=== PATIENT | male | born 1955 | race Caucasian/White ===

== ENCOUNTER 2017-01-22 12:29 | Inpatient (IN) | payer BC ==
[2017-01-22] MEDS ORDERED: SODIUM CHLORIDE 0.9% 1,000 ML IV STA (14:37)
[2017-01-22] MEDS ORDERED: IV VANCOMYCIN PER PHARMACY 1 EACH MISC MISCELLANE PRN (14:37)
[2017-01-22] MEDS ORDERED: LEVOFLOXACIN 750MG-D5W PMX 750 MG in DEXTROSE/WATER 1 150ML.BAG IVPB STA (14:37)
--- NOTE | 2017-01-22 14:40 | ED ---
General Adult HPI - General Chief complaint: Skin/Abscess/Foreign Body Stated complaint: Rash with Sores on Legs Time Seen by Provider: 01/22/17 13:44 Source: patient, RN notes reviewed Mode of arrival: ambulatory Limitations: no limitations - History of Present Illness Initial comments: Patient 61-year-old male who presents emergency room today with bilateral leg rash. Patient does admit that symptoms started over a month ago. He states he had an abscess to the upper thigh. He states he was in [place] time went to an urgent care had labs and started on antibiotics of Bactrim. States been on Bactrim in the past. Patient does admit that approximately a week after finishing his antibiotic he noticed a small rash to his legs bilaterally. He states he went to an urgent care was diagnosed with Henoch Schonen purpura. Patient states that rashes, worse. He states that they've turned into "boils". States she's had some drainage and weeping from the wounds. Patient does admit to burning sensation to the lower legs. Denies any other complaints. Patient denies any recent fever, chills, shortness of breath, chest pain, back pain, abdominal pain, nausea or vomiting, dysuria or hematuria, constipation or diarrhea, headaches or visual changes, or any other complaints. - Related Data Home Medications Medication Instructions Recorded Confirmed Aspirin 81 mg PO DAILY 01/22/17 01/22/17 Canagliflozin [Invokana] 300 mg PO DAILY 01/22/17 01/22/17 Cyanocobalamin (Vitamin B-12) 1,000 mcg PO DAILY 01/22/17 01/22/17 [Vitamin B-12] Insulin Glargine,Hum.rec.anlog 46 units SQ DAILY 01/22/17 01/22/17 [Toujamar Solostar] Liraglutide [Victoza 3-Lucio] 1.8 mg SQ DAILY 01/22/17 01/22/17 Lisinopril [Zestril] 5 mg PO DAILY 01/22/17 01/22/17 Pravastatin Sodium [Pravachol] 80 mg PO HS 01/22/17 01/22/17 metFORMIN HCL [Glucophage] 500 mg PO BID 01/22/17 01/22/17 Allergies Allergy/AdvReac Type Severity Reaction Status Date / Time cefprozil Allergy Unknown Verified 01/22/17 14:11 sulfamethoxazole Allergy Unknown Verified 01/22/17 14:11 [From Bactrim] trimethoprim [From Bactrim] Allergy Unknown Verified 01/22/17 14:11 Review of Systems ROS Statement: Those systems with pertinent positive or pertinent negative responses have been documented in the HPI. ROS Other: All systems not noted in ROS Statement are negative. 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 Eye: Pupils are equal, round and reactive to light, extra-ocular movements are intact. No nystagmus. There is normal conjunctiva bilaterally. No signs of icterus. Ears, nose, mouth and throat: There are moist mucous membranes and no oral lesions. Neck: The neck is supple, there is no tenderness or JVD. Cardiovascular: There is a regular rate and rhythm. No murmur, rub or gallop is appreciated. Respiratory: Lungs are clear to auscultation, respirations are non-labored, breath sounds are equal. No wheezes, stridor, rales, or rhonchi. Musculoskeletal: Normal ROM, no tenderness. Strength 5/5. Sensation intact. Pulses equal bilaterally 2+. Neurological: A&O x 3. CN II-XII intact, There are no obvious motor or sensory deficits. Coordination appears grossly intact. Speech is normal. Skin: He does have multiple ulcers to the lower extremities from the knees down bilaterally. There is local redness or erythema. There is some drainage and weeping from some of these wounds. Psychiatric: Cooperative, appropriate mood & affect, normal judgment. Limitations: no limitations Course Vital Signs 01/22/17 01/22/17 12:32 15:05 Temperature 98.1 F 98.1 F Pulse Rate 88 87 Respiratory 18 16 Rate Blood Pressure 149/70 157/68 O2 Sat by Pulse 98 98 Oximetry Medical Decision Making - Medical Decision Making Case discussed in detail with attending physician Dr. Barlow. Patient started on antibiotics here in the emergency room of both Levaquin and vancomycin. X- rays obtained to rule out any free air. Patient will be admitted continue on antibiotics. - Lab Data Result diagrams: 01/22/17 15:00 01/22/17 15:00 Lab Results 01/22/17 01/22/17 Range/Units 15:00 15:00 WBC 8.8 (3.8-10.6) k/uL RBC 4.50 (4.30-5.90) m/uL Hgb 13.5 (13.0-17.5) gm/dL Hct 41.3 (39.0-53.0) % MCV 91.8 (80.0-100.0) fL MCH 30.0 (25.0-35.0) pg MCHC 32.7 (31.0-37.0) g/dL RDW 12.3 (11.5-15.5) % Plt Count 263 (150-450) k/uL Neutrophils % 75 % Lymphocytes % 13 % Monocytes % 7 % Eosinophils % 3 % Basophils % 0 % Neutrophils # 6.6 (1.3-7.7) k/uL Lymphocytes # 1.2 (1.0-4.8) k/uL Monocytes # 0.6 (0-1.0) k/uL Eosinophils # 0.3 (0-0.7) k/uL Basophils # 0.0 (0-0.2) k/uL Sodium 141 (137-145) mmol/L Potassium 4.7 (3.5-5.1) mmol/L Chloride 106 (98-107) mmol/L Carbon Dioxide 27 (22-30) mmol/L Anion Gap 8 mmol/L BUN 23 H (9-20) mg/dL Creatinine 0.92 (0.66-1.25) mg/dL Est GFR (MDRD) Af Amer >60 (>60 ml/min/1.73 sqM) Est GFR (MDRD) Non-Af >60 (>60 ml/min/1.73 sqM) Glucose 81 (74-99) mg/dL Calcium 8.5 (8.4-10.2) mg/dL Total Bilirubin 0.4 (0.2-1.3) mg/dL AST 13 L (17-59) U/L ALT 28 (21-72) U/L Alkaline Phosphatase 66 (38-126) U/L Total Protein 5.7 L (6.3-8.2) g/dL Albumin 3.2 L (3.5-5.0) g/dL Disposition Clinical Impression: Cellulitis Disposition: ADMITTED IP TO THIS [facility] Condition: Stable Referrals: Nonstaff,Physician [Primary Care Provider] - 1-2 days Time of Disposition: 15:32
[2017-01-22] MEDS ORDERED: VANCOMYCIN 2,500 MG in SODIUM CHLORIDE 0.9% 500 ML IVPB ONE (15:00)
[2017-01-22] MEDS ORDERED: HYDROcodone/APAP 5-325MG 1 EACH TAB PO STA (15:07)
[2017-01-22 15:13] LABS: Basophils % (A) 0 %; CH 29.6; CHCM 32.4; Eosinophils # (A) 0.3 k/uL (0-0.7); Eosinophils % (A) 3 %; HCT 41.3 % (39.0-53.0); HDW 2.21; HGB 13.5 gm/dL (13.0-17.5); Luc # (Auto) 0.15; Luc % (Auto) 2; Lymphocytes # (A) 1.2 k/uL (1.0-4.8); Lymphocytes % (A) 13 %; MCHC 32.7 g/dL (31.0-37.0); MCV 91.8 fL (80.0-100.0); Mean Platelet Volume 7.8; Monocytes # (A) 0.6 k/uL (0-1.0); Monocytes % (A) 7 %; Neutrophils # (A) 6.6 k/uL (1.3-7.7); Neutrophils % (A) 75 %; RDW 12.3 % (11.5-15.5); WBC 8.8 k/uL (3.8-10.6); WBC (Perox) 8.82
[2017-01-22 15:22] LABS: ALT 28 U/L (21-72); AST 13 U/L (17-59); Alkaline Phosphatase 66 U/L (38-126); Anion Gap 8 mmol/L; Blood Urea Nitrogen 23 mg/dL (9-20); Calcium 8.5 mg/dL (8.4-10.2); Carbon Dioxide 27 mmol/L (22-30); Chloride 106 mmol/L (98-107); Glucose 81 mg/dL (74-99); Non-African American GFR(MDRD) >60 (>60 ml/min/1.73 sqM); Potassium 4.7 mmol/L (3.5-5.1); Sodium 141 mmol/L (137-145); Total Bilirubin 0.4 mg/dL (0.2-1.3); Total Protein 5.7 g/dL (6.3-8.2)
[2017-01-22] MEDS ORDERED: HYDROmorphone 1 MG/ML 1 ML SYRINGE IV PRN (15:53)
[2017-01-22] MEDS ORDERED: ACETAMINOPHEN TAB 325 MG TAB PO PRN (15:53)
[2017-01-22] MEDS ORDERED: LORazepam 2 MG/ML SYRINGE IV PRN (15:53)
[2017-01-22] MEDS ORDERED: NALOXONE 0.4 MG/ML 1 ML VIAL IV PRN (15:53)
[2017-01-22] MEDS ORDERED: ONDANSETRON 4 MG/2 ML VIAL IVP PRN (15:53)
--- NOTE | 2017-01-22 16:22 | XR ---
EXAMINATION TYPE: XR foot limited bilateral DATE OF EXAM: 01/22/2017 CLINICAL HISTORY: Bilateral leg and foot infection with pain. TECHNIQUE: Frontal and lateral images of the bilateral feet are obtained. COMPARISON: None FINDINGS: There is no acute fracture/dislocation evident in either foot. Small to moderate-sized sup erior and inferior calcaneal spurs are present bilaterally. There is moderate diffuse subcutaneous ed coleen and soft tissue swelling noted bilaterally. No suspicious cortical destruction or periosteal reac tion is clearly seen. Ossific fusion of fourth middle and distal phalanx bilaterally is incidentally noted. Joint space loss medial talar navicular articulation bilaterally is seen. IMPRESSION: There is soft tissue swelling and calcaneal spurring as well as degenerative changes in both feet as detailed above.
--- NOTE | 2017-01-22 16:27 | XR ---
EXAMINATION TYPE: XR tibia fibula bilateral DATE OF EXAM: 01/22/2017 CLINICAL HISTORY: Bilateral leg and foot infection with pain. TECHNIQUE: Two views of the bilateral legs are obtained. COMPARISON: None. FINDINGS: There is no acute fracture or dislocation seen in either tibia or fibula. There is joint s pace loss and spurring most pronounced medial tibiofemoral and patellofemoral compartments in the rig ht knee. Ankle joints are grossly within normal limits bilaterally. There is moderate to severe diffu se subcutaneous edema present bilaterally. No suspicious cortical destruction or periosteal reaction is seen. IMPRESSION: As above
[2017-01-22 20:59] LABS: Glucose,Whole Blood 102 mg/dL (75-99)
[2017-01-22] MEDS: PRAVASTATIN SODIUM 80 MG TAB PO SCH (22:52)
[2017-01-22] MEDS: metFORMIN 500 MG TAB PO SCH (22:52)
[2017-01-23] MEDS: VANCOMYCIN 2,000 MG in SODIUM CHLORIDE 0.9% 500 ML IVPB SCH ×2 (05:19→18:24)
[2017-01-23 07:01] LABS: Glucose,Whole Blood 83 mg/dL (75-99)
[2017-01-23] MEDS: INSULIN LISPRO (humaLOG) 300 UNIT/3 ML VIAL SQ SCH ×4 (08:29→21:28)
[2017-01-23] MEDS: INSULIN GLARGINE 100 UNIT/ML 10 ML VIAL SQ SCH (09:03)
[2017-01-23] MEDS: metFORMIN 500 MG TAB PO SCH ×2 (09:04→20:40)
[2017-01-23] MEDS: ASPIRIN 81 MG CHEW PO SCH (09:04)
[2017-01-23] MEDS: LISINOPRIL 5 MG TAB PO SCH (09:04)
[2017-01-23 09:15] LABS: Basophils % (A) 0 %; CH 29.8; CHCM 31.7; Eosinophils # (A) 0.2 k/uL (0-0.7); Eosinophils % (A) 2 %; HCT 38.2 % (39.0-53.0); HDW 2.14; HGB 12.1 gm/dL (13.0-17.5); Luc # (Auto) 0.15; Luc % (Auto) 2; Lymphocytes % (A) 12 %; MCH 29.9 pg (25.0-35.0); MCHC 31.6 g/dL (31.0-37.0); MCV 94.5 fL (80.0-100.0); Mean Platelet Volume 7.7; Monocytes # (A) 0.5 k/uL (0-1.0); Monocytes % (A) 7 %; Neutrophils # (A) 6.5 k/uL (1.3-7.7); Neutrophils % (A) 78 %; RBC 4.04 m/uL (4.30-5.90); WBC 8.3 k/uL (3.8-10.6); WBC (Perox) 8.28
[2017-01-23 09:33] LABS: ALT 28 U/L (21-72); AST 11 U/L (17-59); Alkaline Phosphatase 58 U/L (38-126); Anion Gap 7 mmol/L; Blood Urea Nitrogen 18 mg/dL (9-20); Calcium 8.1 mg/dL (8.4-10.2); Carbon Dioxide 22 mmol/L (22-30); Chloride 109 mmol/L (98-107); Glucose 122 mg/dL (74-99); Non-African American GFR(MDRD) >60 (>60 ml/min/1.73 sqM); Potassium 4.5 mmol/L (3.5-5.1); Sodium 138 mmol/L (137-145); Total Bilirubin 0.5 mg/dL (0.2-1.3); Total Protein 4.9 g/dL (6.3-8.2)
[2017-01-23 11:40] LABS: Glucose,Whole Blood 80 mg/dL (75-99)
[2017-01-23] MEDS: CYANOCOBALAMIN 500 MCG TAB PO SCH (12:37)
[2017-01-23 13:52] LABS: Hemoglobin A1C 6.1 % (4.2-6.1)
[2017-01-23 17:30] LABS: Glucose,Whole Blood 87 mg/dL (75-99)
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
[2017-01-23] MEDS: ENOXAPARIN 60 MG/0.6 ML SYRINGE SQ SCH (18:27)
--- NOTE | 2017-01-23 19:42 | US ---
EXAMINATION TYPE: US venous doppler duplex LE BI DATE OF EXAM: 01/23/2017 7:36 PM COMPARISON: NONE CLINICAL HISTORY: Swelling, cellulitis . SIDE PERFORMED: Bilateral TECHNIQUE: The lower extremity deep venous system is examined utilizing real time linear array sonog madison with graded compression, doppler sonography and color-flow sonography. VESSELS IMAGED: External Iliac Vein (EIV) Common Femoral Vein Deep Femoral Vein Greater Saphenous Vein * Femoral Vein Popliteal Vein Small Saphenous Vein * Proximal Calf Veins (* superficial vessels) Right Leg: Negative for DVT Left Leg: Negative for DVT IMPRESSION: Negative exam. No evidence of deep venous thrombosis in both legs.
[2017-01-23] MEDS: HYDROcodone/APAP 5-325MG 1 EACH TAB PO PRN (20:40)
[2017-01-23] MEDS: PRAVASTATIN SODIUM 80 MG TAB PO SCH (20:40)
[2017-01-23 21:40] LABS: Glucose,Whole Blood 94 mg/dL (75-99)
[2017-01-24 07:28] LABS: Glucose,Whole Blood 88 mg/dL (75-99)
[2017-01-24] MEDS: INSULIN LISPRO (humaLOG) 300 UNIT/3 ML VIAL SQ SCH ×4 (07:56→22:00)
[2017-01-24] MEDS: LISINOPRIL 5 MG TAB PO SCH (07:57)
[2017-01-24] MEDS: INSULIN GLARGINE 100 UNIT/ML 10 ML VIAL SQ SCH (07:57)
[2017-01-24] MEDS: VANCOMYCIN 2,000 MG in SODIUM CHLORIDE 0.9% 500 ML IVPB SCH ×2 (07:57→17:39)
[2017-01-24] MEDS: metFORMIN 500 MG TAB PO SCH ×2 (07:57→22:00)
[2017-01-24] MEDS: ASPIRIN 81 MG CHEW PO SCH (07:57)
[2017-01-24] MEDS: ENOXAPARIN 60 MG/0.6 ML SYRINGE SQ SCH (07:57)
[2017-01-24 08:52] LABS: Basophils % (A) 0 %; CH 29.2; CHCM 31.7; Eosinophils # (A) 0.2 k/uL (0-0.7); Eosinophils % (A) 3 %; HCT 38.7 % (39.0-53.0); HDW 2.25; HGB 12.6 gm/dL (13.0-17.5); Luc # (Auto) 0.14; Luc % (Auto) 2; Lymphocytes # (A) 1.2 k/uL (1.0-4.8); Lymphocytes % (A) 16 %; MCH 30.3 pg (25.0-35.0); MCHC 32.7 g/dL (31.0-37.0); MCV 92.6 fL (80.0-100.0); Mean Platelet Volume 7.2; Monocytes # (A) 0.5 k/uL (0-1.0); Monocytes % (A) 7 %; Neutrophils # (A) 5.3 k/uL (1.3-7.7); Neutrophils % (A) 72 %; RBC 4.18 m/uL (4.30-5.90); RDW 12.2 % (11.5-15.5); WBC 7.3 k/uL (3.8-10.6); WBC (Perox) 7.97
[2017-01-24 09:30] LABS: ALT 20 U/L (21-72); AST 11 U/L (17-59); Alkaline Phosphatase 55 U/L (38-126); Anion Gap 8 mmol/L; Blood Urea Nitrogen 19 mg/dL (9-20); Calcium 8.3 mg/dL (8.4-10.2); Carbon Dioxide 26 mmol/L (22-30); Chloride 107 mmol/L (98-107); Glucose 107 mg/dL (74-99); Non-African American GFR(MDRD) >60 (>60 ml/min/1.73 sqM); Potassium 4.9 mmol/L (3.5-5.1); Sodium 141 mmol/L (137-145); Total Bilirubin 0.3 mg/dL (0.2-1.3); Total Protein 5.2 g/dL (6.3-8.2)
[2017-01-24] MEDS: NON-FORMULARY DRUG (Liraglutide [Victoza 3-Pak] 1.8 MG) SQ SCH ×2 (10:22→10:23)
[2017-01-24] MEDS: NON-FORMULARY DRUG (Canagliflozin [Invokana] 300 MG) PO SCH (10:22)
[2017-01-24 11:53] LABS: Glucose,Whole Blood 80 mg/dL (75-99)
[2017-01-24] MEDS: CYANOCOBALAMIN 500 MCG TAB PO SCH (11:53)
[2017-01-24 17:48] LABS: Glucose,Whole Blood 61 mg/dL (75-99)
[2017-01-24 17:48] LABS: Glucose,Whole Blood 76 mg/dL (75-99)
--- NOTE | 2017-01-24 20:12 | P.PN ---
Subjective 61 yr old gentlemen, with history of DM2, obesity who lives in [place], and has been travelling all over the country comes into the hospital with worsening of bilateral lower extremities. pt apparently had a abscess in november, around his groin received a course of bactrim for 10 days. Thereafter was noted to have severe purpura over his extremities. Pt was told it is likely a drug reaction. Pt was given symptomatic treatment and discharged home Pt also had associated diarrhea at that time Pt thereafter noted progressive worsening of swelling in his lower ext. in the recent times, noted to have significant oozing with scabs. Pt tried using peroxide solution, without much relief Denies having fevers, chills, nausea, vomiting, diarrhea, chest pain, REZA. 01/23/17 states to be doing slightly better no fevers, chills, nausea, vomiting, diarrhea - Constitutional General appearance: no acute distress, obese - EENT Eyes: PERRLA - Neck Neck: normal ROM - Respiratory Respiratory: bilateral: CTA, negative: dullness, rales, rhonchi - Cardiovascular Rhythm: regular Heart sounds: normal: S1, S2 - Gastrointestinal General gastrointestinal: normal bowel sounds, no organomegaly, soft - Integumentary Integumentary: cellulitis (b/l below the knee, with multiple areas of scabs tender to palpation, swelling noted.) - Neurologic Neurologic: CNII-XII intact Objective - Vital Signs Vital signs: Vital Signs Temp 98.7 F 01/24/17 14:56 Pulse 86 01/24/17 14:56 Resp 19 01/24/17 14:56 BP 131/70 01/24/17 14:56 Pulse Ox 97 01/24/17 14:56 Intake & Output 01/24/17 01/24/17 01/25/17 06:59 18:59 06:59 Intake Total 400 Balance 400 Intake: Oral 400 Other: Voiding Method Toilet # Voids 2 3 - Labs CBC & Chem 7: 01/24/17 08:06 01/24/17 08:06 Labs: Abnormal Lab Results - Last 24 Hours (Table) 01/24/17 01/24/17 01/24/17 Range/Units 08:06 08:06 17:29 RBC 4.18 L (4.30-5.90) m/uL Hgb 12.6 L (13.0-17.5) gm/dL Hct 38.7 L (39.0-53.0) % Glucose 107 H (74-99) mg/dL POC Glucose (mg/dL) 61 L (75-99) mg/dL Calcium 8.3 L (8.4-10.2) mg/dL AST 11 L (17-59) U/L ALT 20 L (21-72) U/L Total Protein 5.2 L (6.3-8.2) g/dL Albumin 2.8 L (3.5-5.0) g/dL Microbiology - Last 24 Hours (Table) 01/22/17 15:00 Blood Culture - Preliminary Blood No Growth after 48 hours 01/22/17 15:00 Gram Stain - Final Leg - Right Wound Culture - Final Methicillin resist S. aureus Assessment and Plan Plan: 1. Bilateral lower ext. cellulitis 2. Drug induced rash 3. DM2 4. Obesity 5. Dyslipidemia Plan IV vancomycin wound care glucose levels appropriate restart home meds DVT prophylaxis.
[2017-01-24] MEDS: PRAVASTATIN SODIUM 80 MG TAB PO SCH (22:00)
[2017-01-24 22:16] LABS: Glucose,Whole Blood 100 mg/dL (75-99)
[2017-01-25] MEDS ORDERED: VANCOMYCIN TROUGH DUE 1 EACH MISC MISCELLANE ONE (05:00)
[2017-01-25 06:18] LABS: Anion Gap 7 mmol/L; Blood Urea Nitrogen 22 mg/dL (9-20); Carbon Dioxide 24 mmol/L (22-30); Chloride 109 mmol/L (98-107); Glucose 82 mg/dL (74-99); Non-African American GFR(MDRD) >60 (>60 ml/min/1.73 sqM); Potassium 4.4 mmol/L (3.5-5.1); Sodium 140 mmol/L (137-145)
[2017-01-25] MEDS: VANCOMYCIN 2,000 MG in SODIUM CHLORIDE 0.9% 500 ML IVPB SCH (06:49)
[2017-01-25 07:34] LABS: Glucose,Whole Blood 88 mg/dL (75-99)
[2017-01-25] MEDS: ENOXAPARIN 60 MG/0.6 ML SYRINGE SQ SCH (07:54)
[2017-01-25] MEDS: ASPIRIN 81 MG CHEW PO SCH (07:54)
[2017-01-25] MEDS: INSULIN GLARGINE 100 UNIT/ML 10 ML VIAL SQ SCH (07:54)
[2017-01-25] MEDS: INSULIN LISPRO (humaLOG) 300 UNIT/3 ML VIAL SQ SCH ×4 (07:54→21:38)
[2017-01-25] MEDS: LISINOPRIL 5 MG TAB PO SCH (07:55)
[2017-01-25] MEDS: metFORMIN 500 MG TAB PO SCH ×2 (07:55→21:35)
[2017-01-25 12:23] LABS: Glucose,Whole Blood 77 mg/dL (75-99)
[2017-01-25] MEDS: CYANOCOBALAMIN 500 MCG TAB PO SCH (12:25)
--- NOTE | 2017-01-25 12:50 | CONS ---
DATE OF CONSULTATION: 01/24/2017 Reason for consultation is bilateral lower extremity wound and cellulitis. HISTORY OF PRESENT ILLNESS: The patient is a 61-year-old male presenting to the ER with the chief complaints of worsening lower extremity rash and wound. Apparently the patient is a resident of [place] has been traveling around and in November he did notice to have a groin infection that was lanced and culture was positive for MRSA. Patient was treated with a tiny course of oral Bactrim. Patient did okay and finished his antibiotic therapy; however, in his left groin the patient did develop blotches in his lower extremity and swelling of the arm. The patient said he was having petechiae. He went to a hospital in [place] where the patient was diagnosed with HSP and recommending systemic treatment. The patient also noticed to have elevated creatinine with the patient was advised to have a repeat blood work done to keep an eye on his kidney function. [facility] to have a blood draw to have his kidney function checked , on looking at his legs, the patient was sent to the [facility] ER for further evaluation. Patient has been evaluated by the ER physician. The patient did have venous Doppler that was negative for DVT. His creatinine has been normal and his white count was normal. Patient did have a culture obtained from one of his wounds, has been treated with vancomycin and ID was consulted for further recommendation regarding antibiotic therapy. Patient has been complaining of some dull aching pain in his leg wound, though overall surrounding redness has improved. Drainage is minimal. Appears to be ( ) in intensity, about 3 to 4 in pain and radiation. REVIEW OF SYSTEMS: CONSTITUTIONAL: Positive for weakness, but no fever. EYES: No complaint. ENT: No complaint. RESPIRATORY: No complaint. CARDIOVASCULAR: No complaint. GENITOURINARY: No complaint. GASTROINTESTINAL: No complaint. MUSCULOSKELETAL: No complaint. INTEGUMENTARY: As per HPI. PSYCHOLOGICAL: No complaint. ENDOCRINE: No complaint. NEUROLOGICAL: No complaint. His past medical history is significant for diabetes mellitus, groin MRSA, HSP. PAST SURGICAL HISTORY: Tonsillectomy, eye surgery for strabismus, skin cancer removal. SOCIAL HISTORY: Former smoker, occasionally drinks, no drug use. FAMILY HISTORY: Father with diabetes and of cancer, mother with history of diabetes and pancreatic cancer. Allergies to CEFPROZIL, SULFAMETHOXAZOLE. Medications currently include, patient currently on vancomycin. He is on Pravachol, Zosyn, Narcan, Glucophage, lorazepam, Humalog, Lantus, Dilaudid, aspirin, [place] and Tylenol. On examination, blood pressure is 151/70 with a pulse of 86, temperature 98.7. He is 97% on room air. General description is a middle-aged male lying in bed in no distress. No tachypnea or accessory muscle for respiration use. HEENT examination shows some pallor, no scleral icterus. Oral mucosa dry. Neck , tracheal central, no thyromegaly. LUNGS: Unlabored breathing, clear to auscultation anteriorly, no wheeze or crackle. HEART: S1, S2, regular rate and rhythm. ABDOMEN: Soft, no tenderness, no guarding or rigidity. EXTREMITIES: Rash leg, ( ) petechiae, bruises and some superficial laceration with minimal ( ) drainage, very minimal surrounding erythema. Neurologically, patient is awake, alert, oriented x3. Mood and affect normal. LABS: Hemoglobin is 12.6, white count of 7.3 with a BUN of 19, creatinine 0.89. The culture obtained from the wound is showing MRSA, blood cultures have been negative. DIAGNOSTIC IMPRESSION AND PLAN: Patient with a bilateral lower extremity wounds , as evidence of a ruptured blister and petechiae and possibly related to use of Bactrim that he used for his groin infection, now mostly with superficial laceration and a very minimal component of cellulitis with the culture showing a possible methicillin-resistant Staphylococcus aureus, blood culture negative. PLAN: 1. Recommend local wound care with the Aquacel silver dressing which the patient currently needs mostly as a component of cellulitis minimal. 2. The patient will continue with vancomycin, pharmacy to dose; however, will wait for sensitivities on this MRSA and if it is sensitive to tetracycline, that may be the choice of drug for outpatient use as the patient not a good candidate for IV antibiotic therapy as he continues to be traveling around the country. 3. We will follow up on his clinical condition to further adjust medications of needed. Thank you for this consultation, will follow this patient along with you. MARILU
--- NOTE | 2017-01-25 16:50 | P.PN ---
Subjective 61-year-old gentleman was admitted facilities of the right lower extremity and patient has diffuse rash leading to ulcerations in bilateral lower limbs most significant on the right leg, patient has multiple ulcerations please refer to nursing chart for further details. Patient has MRSA, awaiting cultures and studies patient is presently on vancomycin. Denies having fevers, chills, nausea, vomiting, diarrhea, chest pain, REZA. Objective - Vital Signs Vital signs: Vital Signs Temp 97.8 F 01/25/17 14:57 Pulse 74 01/25/17 14:57 Resp 16 01/25/17 14:57 BP 141/75 01/25/17 14:57 Pulse Ox 98 01/25/17 14:57 Intake & Output 01/24/17 01/25/17 01/25/17 18:59 06:59 18:59 Intake Total 500 320 Balance 500 320 Intake: Oral 500 320 Other: Voiding Method Toilet Toilet # Voids 3 1 - Exam - Constitutional General appearance: no acute distress, obese - EENT Eyes: PERRLA - Neck Neck: normal ROM - Respiratory Respiratory: bilateral: CTA, negative: dullness, rales, rhonchi - Cardiovascular Rhythm: regular Heart sounds: normal: S1, S2 - Gastrointestinal General gastrointestinal: normal bowel sounds, no organomegaly, soft - Integumentary Integumentary: cellulitis (b/l below the knee, with multiple areas of scabs tender to palpation, swelling noted.) - Labs CBC & Chem 7: 01/24/17 08:06 01/25/17 05:22 Labs: Abnormal Lab Results - Last 24 Hours (Table) 01/24/17 01/24/17 01/25/17 Range/Units 17:29 21:39 05:22 Chloride 109 H (98-107) mmol/L BUN 22 H (9-20) mg/dL POC Glucose (mg/dL) 61 L 100 H (75-99) mg/dL Calcium 8.0 L (8.4-10.2) mg/dL Microbiology - Last 24 Hours (Table) 01/22/17 15:00 Blood Culture - Preliminary Blood No Growth after 48 hours Assessment and Plan Plan: 1. Bilateral lower ext. cellulitis 2. Drug induced rash, followed by ulcerations multiple on the right leg. 3. DM2 4. Obesity 5. Dyslipidemia Plan IV vancomycin wound care glucose levels appropriate Continue home meds Awaiting finalization of the wound cultures. DVT prophylaxis. Counseled, cleared all the concerns of patient's and family members
[2017-01-25] MEDS: VANCOMYCIN 1,750 MG in SODIUM CHLORIDE 0.9% 250 ML IVPB SCH (17:02)
[2017-01-25 17:25] LABS: Glucose,Whole Blood 62 mg/dL (75-99)
[2017-01-25 17:35] LABS: Glucose,Whole Blood 94 mg/dL (75-99)
--- NOTE | 2017-01-25 20:42 | PN ---
DATE OF SERVICE: 01/25/17 REASON FOR FOLLOW UP: Bilateral lower extremity wound and cellulitis. INTERVAL HISTORY: The patient is afebrile. He is breathing comfortably. Denies significant chest pain or cough. No abdominal pain. Denies significant pain in his leg wound. Though overall drainage has decreased. On examination, blood pressure 141/75, pulse 74, temperature 97.8, he is 98% on room air. General description is a middle age male lying in the bed in no distress. Respiratory system: Unlabored breathing. Clear to auscultation anteriorly. Heart: S1, S2 regular rate and rhythm. Abdomen soft, no tenderness. Bilateral legs with some superficial wound from a ruptured blister though surrounding redness has improved. There is no significant slough tissue or any foul smelling drainage. LABS: BUN 22 with a creatinine of 1.0. Wound culture with MRSA that was resistant to tetracycline. 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 Unfortunately the only eruption will be ( ) 200 daily for six days. Local wound care will be with Aquacel silver. The patient and has been educated if they notice any worsening swelling, redness or any fever to call us or go to the nearest hospital as the patient is currently travelling the whole country. Plan of care discussed in detail with the attending physician as well. MARILU
[2017-01-25 21:10] LABS: Glucose,Whole Blood 148 mg/dL (75-99)
[2017-01-25] MEDS: PRAVASTATIN SODIUM 80 MG TAB PO SCH (21:35)
[2017-01-26] MEDS: VANCOMYCIN 1,750 MG in SODIUM CHLORIDE 0.9% 250 ML IVPB SCH ×2 (05:57→17:42)
[2017-01-26] MEDS: ENOXAPARIN 60 MG/0.6 ML SYRINGE SQ SCH (07:20)
[2017-01-26] MEDS: LISINOPRIL 5 MG TAB PO SCH (07:20)
[2017-01-26] MEDS: ASPIRIN 81 MG CHEW PO SCH (07:20)
[2017-01-26] MEDS: metFORMIN 500 MG TAB PO SCH ×2 (07:20→20:30)
[2017-01-26] MEDS: INSULIN GLARGINE 100 UNIT/ML 10 ML VIAL SQ SCH (07:25)
[2017-01-26] MEDS: INSULIN LISPRO (humaLOG) 300 UNIT/3 ML VIAL SQ SCH ×4 (07:29→21:44)
[2017-01-26 07:33] LABS: Glucose,Whole Blood 84 mg/dL (75-99)
[2017-01-26 09:17] LABS: Anion Gap 5 mmol/L; Blood Urea Nitrogen 18 mg/dL (9-20); Calcium 8.1 mg/dL (8.4-10.2); Carbon Dioxide 25 mmol/L (22-30); Chloride 110 mmol/L (98-107); Glucose 113 mg/dL (74-99); Non-African American GFR(MDRD) >60 (>60 ml/min/1.73 sqM); Potassium 4.7 mmol/L (3.5-5.1); Sodium 140 mmol/L (137-145)
[2017-01-26] MEDS: CYANOCOBALAMIN 500 MCG TAB PO SCH (11:35)
[2017-01-26 11:57] LABS: Glucose,Whole Blood 103 mg/dL (75-99)
--- NOTE | 2017-01-26 15:04 | P.PN ---
Subjective 61-year-old gentleman was admitted facilities of the right lower extremity and patient has diffuse rash leading to ulcerations in bilateral lower limbs most significant on the right leg, patient has multiple ulcerations please refer to nursing chart for further details. Patient has MRSA, infectious disease is recommending Tedizolid, which will lead prior authorization, insurance company is not available until Saturday. Because of which is unable to discharge the patient today. Denies having fevers, chills, nausea, vomiting, diarrhea, chest pain, REZA. Objective - Vital Signs Vital signs: Vital Signs Temp 97.2 F L 01/26/17 07:00 Pulse 69 01/26/17 07:00 Resp 20 01/26/17 07:00 BP 148/82 01/26/17 07:00 Pulse Ox 98 01/26/17 07:00 Intake & Output 01/25/17 01/26/17 01/26/17 18:59 06:59 18:59 Intake Total 320 640 Balance 320 640 Intake: Oral 320 640 Other: Voiding Method Toilet Toilet Toilet # Voids 1 1 - Exam - Constitutional General appearance: no acute distress, obese - EENT Eyes: PERRLA - Neck Neck: normal ROM - Respiratory Respiratory: bilateral: CTA, negative: dullness, rales, rhonchi - Cardiovascular Rhythm: regular Heart sounds: normal: S1, S2 - Gastrointestinal General gastrointestinal: normal bowel sounds, no organomegaly, soft - Integumentary Integumentary: cellulitis (b/l below the knee, with multiple areas of scabs tender to palpation, swelling noted.) - Labs CBC & Chem 7: 01/24/17 08:06 01/26/17 08:06 Labs: Abnormal Lab Results - Last 24 Hours (Table) 01/25/17 01/25/17 01/26/17 Range/Units 17:03 21:08 08:06 Chloride 110 H (98-107) mmol/L Glucose 113 H (74-99) mg/dL POC Glucose (mg/dL) 62 L 148 H (75-99) mg/dL Calcium 8.1 L (8.4-10.2) mg/dL 01/26/17 Range/Units 11:53 Chloride (98-107) mmol/L Glucose (74-99) mg/dL POC Glucose (mg/dL) 103 H (75-99) mg/dL Calcium (8.4-10.2) mg/dL Microbiology - Last 24 Hours (Table) 01/22/17 15:00 Blood Culture - Preliminary Blood No Growth after 72 hours Assessment and Plan Plan: 1. Bilateral lower ext. cellulitis 2. Drug induced rash, followed by ulcerations multiple on the right leg. 3. DM2 4. Obesity 5. Dyslipidemia Plan IV vancomycin wound care glucose levels bit low because of which decreasing the dose of Lantus to 38 units Continue home meds Awaiting finalization of the wound cultures. DVT prophylaxis.
[2017-01-26 17:18] LABS: Glucose,Whole Blood 92 mg/dL (75-99)
[2017-01-26] MEDS: PRAVASTATIN SODIUM 80 MG TAB PO SCH (20:30)
[2017-01-26 21:36] LABS: Glucose,Whole Blood 140 mg/dL (75-99)
[2017-01-27] MEDS: VANCOMYCIN 1,750 MG in SODIUM CHLORIDE 0.9% 250 ML IVPB SCH ×2 (05:06→17:43)
[2017-01-27] MEDS: INSULIN LISPRO (humaLOG) 300 UNIT/3 ML VIAL SQ SCH ×4 (07:34→21:25)
[2017-01-27 07:35] LABS: Glucose,Whole Blood 97 mg/dL (75-99)
[2017-01-27 09:04] LABS: Anion Gap 5 mmol/L; Blood Urea Nitrogen 17 mg/dL (9-20); Carbon Dioxide 25 mmol/L (22-30); Chloride 111 mmol/L (98-107); Glucose 134 mg/dL (74-99); Non-African American GFR(MDRD) >60 (>60 ml/min/1.73 sqM); Potassium 4.5 mmol/L (3.5-5.1); Sodium 141 mmol/L (137-145)
[2017-01-27] MEDS: ENOXAPARIN 60 MG/0.6 ML SYRINGE SQ SCH (09:51)
[2017-01-27] MEDS: LISINOPRIL 5 MG TAB PO SCH (09:51)
[2017-01-27] MEDS: ASPIRIN 81 MG CHEW PO SCH (09:51)
[2017-01-27] MEDS: metFORMIN 500 MG TAB PO SCH ×2 (09:51→20:27)
[2017-01-27] MEDS: INSULIN GLARGINE 100 UNIT/ML 10 ML VIAL SQ SCH (09:59)
[2017-01-27 12:07] LABS: Glucose,Whole Blood 115 mg/dL (75-99)
--- NOTE | 2017-01-27 15:09 | P.PN ---
Subjective 61-year-old gentleman was admitted facilities of the right lower extremity and patient has diffuse rash leading to ulcerations in bilateral lower limbs most significant on the right leg, patient has multiple ulcerations please refer to nursing chart for further details. Patient has MRSA, infectious disease is recommending Tedizolid, which will lead prior authorization, insurance company is not available until Saturday. Because of which is unable to discharge the patient today. 02/27/2017 Patient does not have any overnight events patient is presently on vancomycin plan is to discharge him on daptomycin for 3 days tomorrow. After PICC line placement Denies having fevers, chills, nausea, vomiting, diarrhea, chest pain, REZA. Objective - Vital Signs Vital signs: Vital Signs Temp 96.8 F L 01/27/17 07:00 Pulse 71 01/27/17 07:00 Resp 20 01/27/17 07:00 BP 132/70 01/27/17 07:00 Pulse Ox 98 01/27/17 07:00 Intake & Output 01/26/17 01/27/17 01/27/17 18:59 06:59 18:59 Intake Total 640 Output Total 2 Balance 640 -2 Intake: Oral 640 Output: Urine 2 Other: Voiding Method Toilet # Voids 3 2 - Exam - Constitutional General appearance: no acute distress, obese - EENT Eyes: PERRLA - Neck Neck: normal ROM - Respiratory Respiratory: bilateral: CTA, negative: dullness, rales, rhonchi - Cardiovascular Rhythm: regular Heart sounds: normal: S1, S2 - Gastrointestinal General gastrointestinal: normal bowel sounds, no organomegaly, soft - Integumentary Integumentary: cellulitis (b/l below the knee, with multiple areas of scabs tender to palpation, swelling noted.) - Labs CBC & Chem 7: 01/24/17 08:06 01/27/17 08:40 Labs: Abnormal Lab Results - Last 24 Hours (Table) 01/26/17 01/27/17 01/27/17 Range/Units 21:30 08:40 12:01 Chloride 111 H (98-107) mmol/L Glucose 134 H (74-99) mg/dL POC Glucose (mg/dL) 140 H 115 H (75-99) mg/dL Calcium 8.0 L (8.4-10.2) mg/dL Microbiology - Last 24 Hours (Table) 01/22/17 15:00 Blood Culture - Preliminary Blood No Growth after 96 hours Assessment and Plan Plan: 1. Bilateral lower ext. cellulitis 2. Drug induced rash, followed by ulcerations multiple on the right leg. 3. DM2 4. Obesity 5. Dyslipidemia Plan IV vancomycin wound care glucose levels bit low because of which decreasing the dose of Lantus to 38 units Continue home meds Possible discharge and daptomycin for 3 more days tomorrow. DVT prophylaxis.
--- NOTE | 2017-01-27 15:59 | PN ---
DATE OF SERVICE: 01/26/2017 REASON FOR FOLLOW UP: Bilateral lower extremity cellulitis. INTERVAL HISTORY: The patient is afebrile. He is feeling better. Pain to the legs has improved. Drainage has decreased. Denies significant chest pain. No shortness of breath, no cough. No abdominal pain, no diarrhea. On examination blood pressure is 153/82 with a pulse of 70, temperature 97.7, he is 100% on room air. GENERAL DESCRIPTION: Middle-aged male lying in bed in no distress. RESPIRATORY: Unlabored breathing. Clear to auscultation anteriorly. HEART: S1/S2 regular. ABDOMEN: Soft. No tenderness. Bilateral legs are currently dressed up. No significant drainage on the dressing. LABS: BUN 18 with a creatinine 0.80. DIAGNOSTIC IMPRESSION: 1. Patient with bilateral lower extremity wound from ( ) related to Bactrim. Local wound care to continue with Aquacel silver, IV antibiotic in the form of vanco, transitioning it to ( ) on discharge. Continue supportive care. MTDD
[2017-01-27] MEDS: CYANOCOBALAMIN 500 MCG TAB PO SCH (16:20)
[2017-01-27 17:27] LABS: Glucose,Whole Blood 79 mg/dL (75-99)
[2017-01-27] MEDS: PRAVASTATIN SODIUM 80 MG TAB PO SCH (20:27)
[2017-01-27 20:36] LABS: Glucose,Whole Blood 119 mg/dL (75-99)
[2017-01-28] MEDS: VANCOMYCIN 1,750 MG in SODIUM CHLORIDE 0.9% 250 ML IVPB SCH ×2 (06:02→16:54)
[2017-01-28] MEDS: ENOXAPARIN 60 MG/0.6 ML SYRINGE SQ SCH (07:47)
[2017-01-28] MEDS: ASPIRIN 81 MG CHEW PO SCH (07:47)
[2017-01-28] MEDS: LISINOPRIL 5 MG TAB PO SCH (07:47)
[2017-01-28] MEDS: metFORMIN 500 MG TAB PO SCH (07:47)
[2017-01-28] MEDS: INSULIN GLARGINE 100 UNIT/ML 10 ML VIAL SQ SCH (07:47)
[2017-01-28] MEDS: INSULIN LISPRO (humaLOG) 300 UNIT/3 ML VIAL SQ SCH ×3 (07:47→17:22)
[2017-01-28 07:52] VITALS: RESP 16
[2017-01-28 07:53] LABS: Glucose,Whole Blood 82 mg/dL (75-99)
[2017-01-28 09:24] LABS: Anion Gap 8 mmol/L; Blood Urea Nitrogen 18 mg/dL (9-20); Calcium 8.2 mg/dL (8.4-10.2); Carbon Dioxide 23 mmol/L (22-30); Chloride 110 mmol/L (98-107); Glucose 103 mg/dL (74-99); Non-African American GFR(MDRD) >60 (>60 ml/min/1.73 sqM); Potassium 4.3 mmol/L (3.5-5.1); Sodium 141 mmol/L (137-145)
[2017-01-28] MEDS: CYANOCOBALAMIN 500 MCG TAB PO SCH (11:00)
[2017-01-28] MEDS: HYDROcodone/APAP 5-325MG 1 EACH TAB PO PRN (11:50)
[2017-01-28 12:15] LABS: Glucose,Whole Blood 84 mg/dL (75-99)
--- NOTE | 2017-01-28 14:54 | P.DS ---
Providers Date of admission: 01/22/17 16:20 Attending physician: Aldo Conti MD Consults: 01/23/17 14:29 Consult Physician Routine Consulting Provider: Jeanie Wade Consult Reason/Comments: cellulitis Do you want consulting provider notified?: Yes Primary care physician: Physician Nonstaff Hospital Course: 61-year-old gentleman was admitted facilities of the right lower extremity and patient has diffuse rash leading to ulcerations in bilateral lower limbs most significant on the right leg, patient has multiple ulcerations please refer to nursing chart for further details. received vancomycin last dose will be today and patient will not require any more IV antibiotics as per infectious disease his wounds doesn't look that bad any more. His blood sugars remains low because of which I'm cutting down his discharge Lantus dose to 32 1. Bilateral lower ext. cellulitis 2. Drug induced rash, followed by ulcerations multiple on the right leg. 3. DM2 4. Obesity 5. Dyslipidemia Patient Condition at Discharge: Stable Plan - Discharge Summary New Discharge Prescriptions: Continue Pravastatin Sodium [Pravachol] 80 mg PO HS Cyanocobalamin (Vitamin B-12) [Vitamin B-12] 1,000 mcg PO DAILY Aspirin 81 mg PO DAILY metFORMIN HCL [Glucophage] 500 mg PO BID Lisinopril [Zestril] 5 mg PO DAILY Liraglutide [Victoza 3-Lucio] 1.8 mg SQ DAILY Canagliflozin [Invokana] 300 mg PO DAILY Changed Insulin Glargine,Hum.rec.anlog [Frida Sears] 32 units SQ DAILY #0 Discharge Medication List Aspirin 81 mg PO DAILY 01/22/17 [History] Canagliflozin [Invokana] 300 mg PO DAILY 01/22/17 [History] Cyanocobalamin (Vitamin B-12) [Vitamin B-12] 1,000 mcg PO DAILY 01/22/17 [ History] Liraglutide [Victoza 3-Lucio] 1.8 mg SQ DAILY 01/22/17 [History] Lisinopril [Zestril] 5 mg PO DAILY 01/22/17 [History] Pravastatin Sodium [Pravachol] 80 mg PO HS 01/22/17 [History] metFORMIN HCL [Glucophage] 500 mg PO BID 01/22/17 [History] Insulin Glargine,Hum.rec.anlog [Frida Solkaty] 32 units SQ DAILY #0 01/28/17 [Rx] Follow up Appointment(s)/Referral(s): Nonstaff,Physician [Primary Care Provider] - 3 Days Patient Instructions/Handouts: MRSA (Methicillin Resistant Staphylococcus Aureus) (DC), Type 2 Diabetes in Adults (DC), Henoch-Schonlein Purpura (DC) Activity/Diet/Wound Care/Special Instructions: DM diet Wound care- Aqucel AG, ABD pads, kerlex and SILVANO wrap every 72 hours Discharge Disposition: HOME SELF-CARE
[2017-01-28 15:05] VITALS: BP 130/70; PULSE 73; TEMP 98
[2017-01-28 17:06] LABS: Glucose,Whole Blood 103 mg/dL (75-99)
--- NOTE | 2017-01-28 17:33 | PN ---
DATE OF SERVICE: 01/27/17 REASON FOR FOLLOW UP: Bilateral lower extremity wound and cellulitis. INTERVAL HISTORY: The patient is afebrile. He is currently feeling better. Breathing comfortably. The patient denies significant pain to the bilateral leg wound area. The patient denies significant chest pain, shortness of breath , cough, no abdominal pain or diarrhea. On examination, blood pressure 151/73, pulse 59, temperature 97.7. She is 96 % on room air. General description is a middle age male lying in the bed in no distress. Respiratory system: Unlabored breathing. Clear to auscultation anteriorly. Heart: S1, S2 regular rate and rhythm. Abdomen soft, no tenderness. Bilateral leg wound is currently dressed up. No obvious drainage on the dressing. LABS: BUN 9, creatinine 0.87. DIAGNOSTIC IMPRESSION AND PLAN: Patient with bilateral lower extremity wound and secondary cellulitis. Wound superficial is all ruptured petechia. Slight blister from his ( ) overall cellulitis has improved. Apparently may take more than three days to get approval for ( ). If that is the case, the patient can be discharged tomorrow on IV Daptomycin 4 mg per kg daily for another three to five days through peripheral IV. No need for placement of PICC line. Local wound care to continue with Aquacel silver. Plan of care discussed ( ) attending physician. MARILU
--- NOTE | 2017-01-29 06:48 | PN ---
DATE OF SERVICE: 01/28/2017 Reason for follow up is bilateral extremity wound with cellulitis. INTERVAL HISTORY: The patient is afebrile. He is feeling better, breathing comfortably. Denies any significant pain in the leg area. Patient denies any significant chest pain, shortness of breath. No cough, no abdominal pain, no diarrhea. On examination, blood pressure is 141/81 with a pulse of 72, temperature 98.2, he is 97% on room air. General description is a middle-aged male lying in bed, in no distress. RESPIRATORY SYSTEM: Unlabored breathing, clear to auscultation anteriorly. HEART: S1, S2, regular rate and rhythm. ABDOMEN: Soft, no tenderness. Bilateral leg wounds have showed improvement and the cellulitis almost resolved. LABS: BUN of 18 with a creatinine of 0.96. DIAGNOSTIC IMPRESSION AND PLAN: Patient with bilateral lower extremity wound, superficial from a ruptured petechiae with some significant cellulitis, cultures positive for methicillin-resistant Staphylococcus aureus. Patient did show overall improvement as for the cellulitis, recommend local wound care only with Aquacel Silver and no need for antibiotic on discharge. He can get his last dose of antibiotic this afternoon. Plans were discussed with the RN as well as the attending physician. MARILU
== END 2017-01-28 19:19 | disposition home or self-care (01) | DRG 603 ==
LOC: EC 12:29 → 4MS4W 16:20
PROVIDERS: ADMIT Internal Medicine; ATTEND Internal Medicine
DX: L03.115 Cellulitis of right lower limb (principal); D69.2 Other nonthrombocytopenic purpura; L03.116 Cellulitis of left lower limb; E11.9 Type 2 diabetes mellitus without complications; E66.9 Obesity, unspecified; E78.5 Hyperlipidemia, unspecified; L27.0 Generalized skin eruption due to drugs and medicaments taken internally; T37.0X5A Adverse effect of sulfonamides, initial encounter; Z79.82 Long term (current) use of aspirin; Z79.899 Other long term (current) drug therapy; Z80.0 Family history of malignant neoplasm of digestive organs; Z83.3 Family history of diabetes mellitus; Z85.828 Personal history of other malignant neoplasm of skin; Z86.14 Personal history of Methicillin resistant Staphylococcus aureus infection; Z87.891 Personal history of nicotine dependence
CPT/HCPCS: 36415; 80048; 80053; 80202; 83036; 85025; 87040; 87070; 87077; 87186; 87205; 93970; 96361; 96365; 96366; 96367; 99285